=== PATIENT | male | born 1955 | race Caucasian/White ===

== ENCOUNTER 2018-03-27 14:29 | Inpatient (IN) | payer MEDICARE, OTHER ==
[2018-03-27] MEDS ORDERED: NEOMYCIN-BACITRACIN-POLYMYXIN 0.9 GM UD TOP ONE ×2 (15:12→15:33)
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
[2018-03-27] MEDS ORDERED: MORPHINE SULFATE INJ 10 MG/ML VIAL IV ONE ×2 (16:44→18:11)
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
[2018-03-27] MEDS ORDERED: AMOXICILLIN & POT CLAVULANATE 875 MG TAB PO ONE (17:25)
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
[2018-03-27] MEDS ORDERED: SODIUM CHLORIDE 0.9% (FLUSH) 10 ML SYG IV PRN (21:38)
[2018-03-27] MEDS ORDERED: IV SET AND CAP CHANGE INJ INJ SCH (22:00)
[2018-03-27] MEDS: MORPHINE SULFATE INJ 10 MG/ML VIAL IV PRN (22:16)
[2018-03-27] MEDS ORDERED: AZITHROMYCIN 250 MG TAB PO ONE (22:48)
[2018-03-27] MEDS ORDERED: traZODone HCL 100 MG TAB PO PRN (23:32)
[2018-03-27] MEDS: SOTALOL 80 MG TAB PO SCH (23:46)
[2018-03-27] MEDS: traZODone HCL 100 MG TAB PO SCH (23:47)
[2018-03-27] MEDS: ATORVASTATIN 20 MG TAB PO SCH (23:49)
[2018-03-27] MEDS: NON-FORMULARY MEDICATION 1 EA MIS (Diazepam [Valium] 10 MG) PO SCH (23:49)
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
[2018-03-28] MEDS: MORPHINE SULFATE INJ 10 MG/ML VIAL IV PRN ×4 (04:52→17:12)
--- NOTE | 2018-03-28 07:55 | RAD ---
EXAM DESCRIPTION: Chest,2 Views CLINICAL HISTORY: pneumothorax COMPARISON: March 27, 2018 TECHNIQUE: PA/lateral FINDINGS: Small left pneumothorax persists with a tiny sliver of air noted along the lateral margin of the lung and a persistent cap of air over the apex of the lung with the pneumothorax estimated in the 15-20% range. No significant improvement or deterioration from the previous day is noted. Fibrotic lung disease in the lung bases is evident. Permanent cardiac ICD is in place with two sets of pacing/defibrillator leads noted. Previous sternotomy is evident and previous surgical dissection in the medial aspect of the left apical region is noted. The right lung remains adequately expanded with the mild basilar fibrotic/atelectatic changes at the lung bases noted. IMPRESSION: Persistent small left apical and lateral pneumothorax estimated at 15-20% with very little change from previous day's study. Electronically signed by: Jose Floyd MD 03/28/2018 7:54 AM CDT
[2018-03-28] MEDS: ENOXAPARIN SODIUM 40 MG/0.4 ML SYG SUBCU SCH ×3 (08:33→11:53)
[2018-03-28] MEDS: METOPROLOL SUCCINATE XL 100 MG TAB PO SCH (09:42)
[2018-03-28] MEDS: DULoxetine HCL 30 MG CAP PO SCH (09:42)
[2018-03-28] MEDS: AZITHROMYCIN 250 MG TAB PO SCH (09:42)
[2018-03-28] MEDS: OMEPRAZOLE CAP 20 MG CAP PO SCH ×2 (09:43→17:12)
[2018-03-28] MEDS: SOTALOL 80 MG TAB PO SCH ×2 (09:43→20:40)
[2018-03-28] MEDS: NON-FORMULARY MEDICATION 1 EA MIS (Diazepam [Valium] 10 MG) PO SCH (09:43)
[2018-03-28] MEDS: LISINOPRIL 5 MG TAB PO SCH ×2 (09:43→20:40)
[2018-03-28] MEDS: Wellbutrin XL 150 MG TAB PO SCH (09:43)
[2018-03-28] MEDS: ASPIRIN (CHEWABLE) 81 MG TAB PO SCH (09:43)
[2018-03-28] MEDS: diazePAM 5 MG TAB PO SCH ×2 (15:10→20:41)
[2018-03-28] MEDS ORDERED: SOTALOL 80 MG TAB ONE (19:17)
[2018-03-28] MEDS: traZODone HCL 100 MG TAB PO SCH (20:40)
[2018-03-28] MEDS: ATORVASTATIN 20 MG TAB PO SCH (20:41)
[2018-03-29] MEDS: MORPHINE SULFATE INJ 10 MG/ML VIAL IV PRN ×2 (00:10→04:57)
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
[2018-03-29] MEDS: OMEPRAZOLE CAP 20 MG CAP PO SCH ×2 (06:00→16:36)
--- NOTE | 2018-03-29 07:04 | RAD ---
EXAM: PA and LATERAL CHEST RADIOGRAPHS CLINICAL INDICATION: Evaluate pneumothorax. COMPARISON: Yesterday's chest radiograph 0652 hours. FINDINGS: Unchanged small to moderate-sized left pneumothorax. Shifting bilateral atelectasis. Unchanged sequela of remote heart surgery. IMPRESSION: Unchanged chest radiograph. Electronically signed by: Patrice Fofana MD 03/29/2018 7:03 AM CDT
[2018-03-29] MEDS ORDERED: METOPROLOL SUCCINATE XL 100 MG TAB PO ONE (07:11)
[2018-03-29] MEDS ORDERED: SOTALOL 80 MG TAB ONE (07:12)
[2018-03-29] MEDS: ENOXAPARIN SODIUM 40 MG/0.4 ML SYG SUBCU SCH (08:29)
[2018-03-29] MEDS: diazePAM 5 MG TAB PO SCH ×3 (08:30→21:00)
[2018-03-29] MEDS: DULoxetine HCL 30 MG CAP PO SCH (08:30)
[2018-03-29] MEDS: ASPIRIN (CHEWABLE) 81 MG TAB PO SCH (08:31)
[2018-03-29] MEDS: AZITHROMYCIN 250 MG TAB PO SCH (08:31)
[2018-03-29] MEDS: SOTALOL 80 MG TAB PO SCH ×2 (08:32→20:57)
[2018-03-29] MEDS: Wellbutrin XL 150 MG TAB PO SCH (08:32)
[2018-03-29] MEDS: LISINOPRIL 5 MG TAB PO SCH ×2 (08:37→21:00)
[2018-03-29] MEDS: METOPROLOL SUCCINATE XL 100 MG TAB PO SCH (08:41)
[2018-03-29] MEDS: IBUPROFEN 200 MG TAB PO SCH ×3 (11:40→20:59)
[2018-03-29] MEDS: HYDROcodone 5MG/APAP 325MG 1 EA TAB PO PRN ×2 (11:46→16:54)
[2018-03-29] MEDS ORDERED: MAGNESIUM HYDROXIDE 30 ML UD PO ONE (11:47)
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
[2018-03-29] MEDS ORDERED: CARVEDILOL 3.125 MG TAB ONE (20:29)
[2018-03-29] MEDS ORDERED: SODIUM CHLORIDE 0.9% 1000ML 0 ML ONE (20:29)
[2018-03-29] MEDS ORDERED: MAGNESIUM SULFATE PREMIX 2GM 0 ML IVPB ONE (20:30)
[2018-03-29] MEDS: ATORVASTATIN 20 MG TAB PO SCH (20:58)
[2018-03-29] MEDS: traZODone HCL 100 MG TAB PO SCH (20:58)
[2018-03-30] MEDS: HYDROcodone 5MG/APAP 325MG 1 EA TAB PO PRN (02:12)
[2018-03-30] MEDS: OMEPRAZOLE CAP 20 MG CAP PO SCH (06:07)
--- NOTE | 2018-03-30 06:48 | RAD ---
Clinical History : pneumo , MAIN Exam : PA and lateral views of the chest 03/30/2018 7:00 AM CDT Comparisons : PA and lateral views the chest March 29, 2018 Findings : There is a stable small loculated left basilar pneumothorax. There is stable patchy bibasilar airspace disease which is more pronounced on the left. There is no pleural effusion The heart is stable in size. The mediastinal contours are normal in appearance. The patient is status post sternotomy and CABG. There is a left chest 2 lead pacer /AICD in place. The thoracic spine is age appropriate. The shoulders are unremarkable. Limited evaluation of the upper abdomen demonstrates no gross abnormalities. Impression: 1. Stable small left basilar pneumothorax. 2. Patchy bibasilar airspace disease, likely atelectasis. Electronically signed by: Shade Magaña MD 03/30/2018 6:47 AM CDT
[2018-03-30] MEDS: ENOXAPARIN SODIUM 40 MG/0.4 ML SYG SUBCU SCH (08:13)
[2018-03-30] MEDS: Wellbutrin XL 150 MG TAB PO SCH (08:15)
[2018-03-30] MEDS: DULoxetine HCL 30 MG CAP PO SCH (08:15)
[2018-03-30] MEDS: IBUPROFEN 200 MG TAB PO SCH (08:16)
[2018-03-30] MEDS: LISINOPRIL 5 MG TAB PO SCH (08:16)
[2018-03-30] MEDS: AZITHROMYCIN 250 MG TAB PO SCH (08:16)
[2018-03-30] MEDS: ASPIRIN (CHEWABLE) 81 MG TAB PO SCH (08:20)
[2018-03-30] MEDS: diazePAM 5 MG TAB PO SCH (08:20)
[2018-03-30] MEDS: SOTALOL 80 MG TAB PO SCH (08:26)
[2018-03-30] MEDS: METOPROLOL SUCCINATE XL 100 MG TAB PO SCH (08:35)
[2018-03-30 10:19] VITALS: BP 101/70; TEMP 97.7
[2018-03-30] MEDS ORDERED: MAGNESIUM HYDROXIDE 30 ML UD PO ONE (11:11)
[2018-03-30 13:51] VITALS: O2SAT 95
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
== END 2018-03-30 14:58 | disposition home or self-care (01) | DRG 200 ==
LOC: ER 14:29 → MS 21:18 → OBSVTOIN 21:18
PROVIDERS: ADMIT Nurse Practitioner Acute Care; ATTEND Nurse Practitioner Family
DX: S27.0XXA Traumatic pneumothorax, initial encounter (principal); S22.42XA Multiple fractures of ribs, left side, initial encounter for closed fracture; E78.5 Hyperlipidemia, unspecified; I11.0 Hypertensive heart disease with heart failure; I50.9 Heart failure, unspecified; J44.9 Chronic obstructive pulmonary disease, unspecified; K21.9 Gastro-esophageal reflux disease without esophagitis; I25.10 Atherosclerotic heart disease of native coronary artery without angina pectoris; E04.1 Nontoxic single thyroid nodule; J01.00 Acute maxillary sinusitis, unspecified; S50.312A Abrasion of left elbow, initial encounter; S40.212A Abrasion of left shoulder, initial encounter; V28.4XXA Motorcycle driver injured in noncollision transport accident in traffic accident, initial encounter; Y93.9 Activity, unspecified; Y92.410 Unspecified street and highway as the place of occurrence of the external cause; Y99.9 Unspecified external cause status; Z79.82 Long term (current) use of aspirin; Z95.1 Presence of aortocoronary bypass graft; Z95.0 Presence of cardiac pacemaker; Z86.73 Personal history of transient ischemic attack (TIA), and cerebral infarction without residual deficits; Z95.2 Presence of prosthetic heart valve; Z87.891 Personal history of nicotine dependence; Z79.899 Other long term (current) drug therapy

== ENCOUNTER 2018-04-04 15:53 | Inpatient (IN) | payer MEDICARE, OTHER ==
[2018-04-04] MEDS ORDERED: HYDROcodone 10MG/APAP 325MG 1 EA TAB PO ONE (16:31)
[2018-04-04] MEDS ORDERED: KETOROLAC TROMETHAMINE INJ 60 MG/2 ML VIAL IM ONE (16:32)
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
[2018-04-04] MEDS ORDERED: VANCOMYCIN HCL INJ 1,000 MG, VANCOMYCIN HCL INJ 500 MG in SODIUM CHLORIDE 0.9% 250ML 25... IVPB ONE (17:11)
[2018-04-04] MEDS ORDERED: CEFEPIME 2 GM in SODIUM CHL 0.9% 50ML MIN-BAG+ 50 ML IVPB ONE (17:11)
[2018-04-04] MEDS ORDERED: levoFLOXacin 750MG IV 750 MG in PREMIX BAG 1 BAG IVPB ONE (17:11)
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
[2018-04-04] MEDS ORDERED: CEFEPIME 2 GM VIAL IVPB ONE (19:22)
[2018-04-04] MEDS ORDERED: SODIUM CHL 0.9% 50ML MIN-BAG+ 50 ML IVPB ONE (19:22)
[2018-04-04] MEDS ORDERED: SODIUM CHLORIDE 0.9% (FLUSH) 10 ML SYG IV PRN (20:32)
[2018-04-04] MEDS ORDERED: HYDROcodone 5MG/APAP 325MG 1 EA TAB PO PRN (20:32)
[2018-04-04] MEDS ORDERED: SODIUM CHLORIDE 0.45% 1000ML 1,000 ML IV ONE (20:37)
[2018-04-04] MEDS ORDERED: traZODone HCL 100 MG TAB PO PRN (20:39)
[2018-04-04] MEDS ORDERED: LEVALBUTEROL NEBS 1.25 MG/3 ML VIAL NEB PRN (20:43)
[2018-04-04] MEDS ORDERED: NON-FORMULARY MEDICATION 1 EA MIS (Diazepam [Valium] 10 MG) PO SCH (21:00)
[2018-04-04] MEDS ORDERED: IBUPROFEN 600 MG PO SCH (21:00)
[2018-04-04] MEDS ORDERED: SODIUM CHLORIDE 0.9% 250ML 250 ML ONE (21:09)
[2018-04-04] MEDS ORDERED: VANCOMYCIN HCL INJ 500 MG VIAL ONE (21:09)
[2018-04-04] MEDS ORDERED: VANCOMYCIN HCL INJ 1,000 MG VIAL IVPB ONE (21:09)
[2018-04-04] MEDS ORDERED: IBUPROFEN 400 MG TAB ONE (21:19)
[2018-04-04] MEDS ORDERED: diazePAM 5 MG TAB ONE (21:20)
[2018-04-04] MEDS: SOTALOL 80 MG TAB PO SCH (21:24)
[2018-04-04] MEDS: ATORVASTATIN 20 MG TAB PO SCH (21:24)
[2018-04-04] MEDS: LISINOPRIL 5 MG TAB PO SCH (21:25)
[2018-04-04] MEDS: traZODone HCL 100 MG TAB PO SCH (21:27)
[2018-04-04] MEDS: LEVALBUTEROL NEBS 1.25 MG/3 ML VIAL NEB SCH (21:40)
[2018-04-04] MEDS: ENOXAPARIN SODIUM 40 MG/0.4 ML SYG SUBCU SCH (21:42)
[2018-04-04] MEDS ORDERED: HYDROcodone 5MG/APAP 325MG 1 EA TAB ONE (21:44)
[2018-04-04] MEDS ORDERED: IBUPROFEN 200 MG TAB ONE (21:44)
[2018-04-04] MEDS: IV SET AND CAP CHANGE INJ INJ SCH (21:54)
[2018-04-04] MEDS: SODIUM CHLORIDE 0.9% (FLUSH) 10 ML SYG IV SCH (21:55)
[2018-04-05] MEDS ORDERED: HYDROcodone 5MG/APAP 325MG 1 EA TAB ONE (01:25)
[2018-04-05] MEDS: HYDROcodone 5MG/APAP 325MG 1 EA TAB PO PRN ×5 (01:34→19:49)
[2018-04-05] MEDS ORDERED: PANTOPRAZOLE SODIUM IV 40 MG VIAL IV SCH (06:30)
--- NOTE | 2018-04-05 08:01 | RAD ---
EXAM DESCRIPTION: Chest,2 Views CLINICAL HISTORY: Pneumonia COMPARISON: Chest x-ray April 04, 2018. CT of the thorax March 27, 2018. FINDINGS: Frontal and lateral views of the thorax. Less conspicuous airspace opacities seen within the lower/lingula portions of the left upper lobe. Multiple left-sided rib fractures and adjacent pleural thickening and/or fluid is noted. Remote surgical changes of the mediastinum. Left chest wall battery pack for dual-lead pacemaker type device. Previously described pneumothorax on the left side is not demonstrated with this modality. IMPRESSION: Nonvisualized left-sided pneumothorax. Improved airspace disease lingular portions left upper lobe consistent with improved atelectasis. Electronically signed by: Richi Cage MD 04/05/2018 7:59 AM CDT
[2018-04-05] MEDS: LEVALBUTEROL NEBS 1.25 MG/3 ML VIAL NEB SCH ×2 (08:43→20:00)
[2018-04-05] MEDS: LISINOPRIL 5 MG TAB PO SCH ×2 (09:38→20:52)
[2018-04-05] MEDS: IBUPROFEN 200 MG TAB PO SCH ×3 (09:39→20:52)
[2018-04-05] MEDS: Wellbutrin XL 150 MG TAB PO SCH (09:39)
[2018-04-05] MEDS: SOTALOL 80 MG TAB PO SCH ×2 (09:39→20:52)
[2018-04-05] MEDS: DULoxetine HCL 30 MG CAP PO SCH (09:40)
[2018-04-05] MEDS: METOPROLOL SUCCINATE XL 100 MG TAB PO SCH (09:42)
[2018-04-05] MEDS: diazePAM 5 MG TAB PO SCH ×3 (09:48→20:52)
[2018-04-05] MEDS: SODIUM CHLORIDE 0.9% (FLUSH) 10 ML SYG IV SCH ×2 (10:11→20:51)
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
[2018-04-05] MEDS: levoFLOXacin 750MG IV 750 MG in PREMIX BAG 1 BAG IVPB SCH (18:05)
[2018-04-05] MEDS: ENOXAPARIN SODIUM 40 MG/0.4 ML SYG SUBCU SCH (20:51)
[2018-04-05] MEDS: traZODone HCL 100 MG TAB PO SCH (20:52)
[2018-04-05] MEDS: ATORVASTATIN 20 MG TAB PO SCH (20:52)
[2018-04-06] MEDS: HYDROcodone 5MG/APAP 325MG 1 EA TAB PO PRN ×2 (07:40→13:04)
[2018-04-06] MEDS: DULoxetine HCL 30 MG CAP PO SCH (08:14)
[2018-04-06] MEDS: IBUPROFEN 200 MG TAB PO SCH ×3 (08:14→20:45)
[2018-04-06] MEDS: Wellbutrin XL 150 MG TAB PO SCH (08:14)
[2018-04-06] MEDS: METOPROLOL SUCCINATE XL 100 MG TAB PO SCH (08:14)
[2018-04-06] MEDS: LISINOPRIL 5 MG TAB PO SCH ×2 (08:15→20:46)
[2018-04-06] MEDS: diazePAM 5 MG TAB PO SCH ×3 (08:15→20:45)
[2018-04-06] MEDS: SOTALOL 80 MG TAB PO SCH ×2 (08:15→20:46)
[2018-04-06] MEDS: SODIUM CHLORIDE 0.9% (FLUSH) 10 ML SYG IV SCH ×2 (08:15→20:45)
[2018-04-06] MEDS: LEVALBUTEROL NEBS 1.25 MG/3 ML VIAL NEB SCH ×2 (08:22→20:00)
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
[2018-04-06] MEDS: levoFLOXacin 750MG IV 750 MG in PREMIX BAG 1 BAG IVPB SCH (17:41)
[2018-04-06] MEDS: traZODone HCL 100 MG TAB PO SCH (20:45)
[2018-04-06] MEDS: ATORVASTATIN 20 MG TAB PO SCH (20:45)
[2018-04-06] MEDS: ENOXAPARIN SODIUM 40 MG/0.4 ML SYG SUBCU SCH (20:45)
[2018-04-07] MEDS: HYDROcodone 5MG/APAP 325MG 1 EA TAB PO PRN ×4 (05:15→22:46)
[2018-04-07] MEDS: LEVALBUTEROL NEBS 1.25 MG/3 ML VIAL NEB SCH ×2 (08:04→21:09)
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
[2018-04-07] MEDS: DULoxetine HCL 30 MG CAP PO SCH (09:34)
[2018-04-07] MEDS: METOPROLOL SUCCINATE XL 100 MG TAB PO SCH (09:34)
[2018-04-07] MEDS: LISINOPRIL 5 MG TAB PO SCH ×2 (09:34→21:03)
[2018-04-07] MEDS: IBUPROFEN 200 MG TAB PO SCH ×3 (09:35→21:01)
[2018-04-07] MEDS: diazePAM 5 MG TAB PO SCH ×3 (09:36→21:03)
[2018-04-07] MEDS: Wellbutrin XL 150 MG TAB PO SCH (09:36)
[2018-04-07] MEDS: SODIUM CHLORIDE 0.9% (FLUSH) 10 ML SYG IV SCH ×2 (09:37→21:04)
[2018-04-07] MEDS: SOTALOL 80 MG TAB PO SCH ×2 (09:37→21:00)
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
[2018-04-07] MEDS: levoFLOXacin 750MG IV 750 MG in PREMIX BAG 1 BAG IVPB SCH (17:56)
[2018-04-07] MEDS: traZODone HCL 100 MG TAB PO SCH (21:00)
[2018-04-07] MEDS: ATORVASTATIN 20 MG TAB PO SCH (21:00)
[2018-04-07] MEDS: ENOXAPARIN SODIUM 40 MG/0.4 ML SYG SUBCU SCH (21:01)
[2018-04-07] MEDS: IV SET AND CAP CHANGE INJ INJ SCH (21:02)
[2018-04-08] MEDS: HYDROcodone 5MG/APAP 325MG 1 EA TAB PO PRN (05:36)
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
[2018-04-08] MEDS: LEVALBUTEROL NEBS 1.25 MG/3 ML VIAL NEB SCH (07:41)
[2018-04-08] MEDS: DULoxetine HCL 30 MG CAP PO SCH (08:04)
[2018-04-08] MEDS: SODIUM CHLORIDE 0.9% (FLUSH) 10 ML SYG IV SCH (08:04)
[2018-04-08] MEDS: METOPROLOL SUCCINATE XL 100 MG TAB PO SCH (08:05)
[2018-04-08] MEDS: diazePAM 5 MG TAB PO SCH (08:05)
[2018-04-08] MEDS: Wellbutrin XL 150 MG TAB PO SCH (08:05)
[2018-04-08] MEDS: LISINOPRIL 5 MG TAB PO SCH (08:05)
[2018-04-08] MEDS: SOTALOL 80 MG TAB PO SCH (08:06)
[2018-04-08] MEDS: IBUPROFEN 200 MG TAB PO SCH (08:06)
[2018-04-08 10:21] VITALS: BP 102/66; TEMP 98.1; O2SAT 94
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
== END 2018-04-08 11:06 | disposition home or self-care (01) | DRG 194 ==
LOC: ER 15:53 → MS 17:37
PROVIDERS: ADMIT Nurse Practitioner Acute Care; ATTEND Nurse Practitioner Family
DX: J18.8 Other pneumonia, unspecified organism (principal); J44.0 Chronic obstructive pulmonary disease with (acute) lower respiratory infection; J98.11 Atelectasis; M25.512 Pain in left shoulder; E78.5 Hyperlipidemia, unspecified; I11.0 Hypertensive heart disease with heart failure; I50.9 Heart failure, unspecified; F41.8 Other specified anxiety disorders; E04.1 Nontoxic single thyroid nodule; K21.9 Gastro-esophageal reflux disease without esophagitis; I25.10 Atherosclerotic heart disease of native coronary artery without angina pectoris; F17.290 Nicotine dependence, other tobacco product, uncomplicated; S22.42XD Multiple fractures of ribs, left side, subsequent encounter for fracture with routine healing; S27.0XXD Traumatic pneumothorax, subsequent encounter; Z86.73 Personal history of transient ischemic attack (TIA), and cerebral infarction without residual deficits; Z95.1 Presence of aortocoronary bypass graft; Z95.0 Presence of cardiac pacemaker; Z95.2 Presence of prosthetic heart valve; Z79.82 Long term (current) use of aspirin; Z79.1 Long term (current) use of non-steroidal anti-inflammatories (NSAID); Z79.891 Long term (current) use of opiate analgesic; Z79.899 Other long term (current) drug therapy

== ENCOUNTER 2019-08-19 16:32 | Emergency (ER) | payer MEDICARE, OTHER ==
[2019-08-19 16:59] VITALS: TEMP 98.4
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
[2019-08-19] MEDS: SODIUM CHLORIDE 0.9% 1000ML 1,000 ML IVS ONE ×2 (18:00→18:45)
[2019-08-19] MEDS: DEXAMETHASONE INJ 10 MG/ML VIAL IV ONE (18:00)
[2019-08-19] MEDS: MORPHINE SULFATE INJ 10 MG/ML VIAL IV ONE ×2 (18:01→22:02)
[2019-08-19] MEDS: METHOCARBAMOL 750 MG TAB PO ONE (18:03)
--- NOTE | 2019-08-19 19:53 | RAD ---
EXAM DESCRIPTION: Pelvis,2 or More Views CLINICAL HISTORY: 64 years Male pain COMPARISON: None TECHNIQUE: AP view of the pelvis was obtained. FINDINGS: No fracture seen. Normal bony mineralization. No erosive or lytic lesions seen. Vascular stent right iliac region. IMPRESSION: No acute fracture or dislocation seen. Electronically signed by: Paty Dawn MD 08/19/2019 7:51 PM CDT
--- NOTE | 2019-08-19 19:55 | RAD ---
EXAM DESCRIPTION: Lumbar Spine 3 Views CLINICAL HISTORY: 64 years Male pain COMPARISON: None TECHNIQUE: Three images of the lumbar spine were obtained. FINDINGS: Height of the vertebral bodies is intact. Satisfactory alignment articular facets. Intact pedicles and transverse processes. Mild to moderate anterior and lateral osteophyte formation multiple levels. Vascular stent right iliac region. IMPRESSION: No acute fracture or subluxation seen. Mild to moderate multilevel osteoarthritic change. Electronically signed by: Paty Dawn MD 08/19/2019 7:53 PM CDT
[2019-08-19 22:52] VITALS: BP 141/74; O2SAT 95
== END 2019-08-19 22:52 | disposition home or self-care (01) ==
LOC: ER 16:32
DX: M54.41 Lumbago with sciatica, right side (principal); J44.9 Chronic obstructive pulmonary disease, unspecified; I25.2 Old myocardial infarction; I50.9 Heart failure, unspecified; I11.0 Hypertensive heart disease with heart failure; K21.9 Gastro-esophageal reflux disease without esophagitis; Z95.1 Presence of aortocoronary bypass graft; Z95.0 Presence of cardiac pacemaker; Z79.82 Long term (current) use of aspirin; Z79.899 Other long term (current) drug therapy; Z72.0 Tobacco use
CPT/HCPCS: 36415; 72100; 72190; 80053; 81001; 83690; 85025; J1100; J2270; J7030